=== PATIENT | male | born 1965 | race Caucasian/White ===

== ENCOUNTER → 2017-03-12 | Outpatient (CLI) | payer OTHER | END | disposition home or self-care (01) | LOC: NUC 03-03 09:00 | DX: M19.012 Primary osteoarthritis, left shoulder (principal); S29.9XXA Unspecified injury of thorax, initial encounter; R93.7 Abnormal findings on diagnostic imaging of other parts of musculoskeletal system | CPT/HCPCS: 78315; A9503 ==